=== PATIENT | female | born 1990 | race Caucasian/White ===

== ENCOUNTER 2020-08-19 02:10 | Emergency (ER) | payer SELFPAY | END 2020-08-19 02:58 | disposition home or self-care (01) | LOC: CSHERS 02:10 | DX: H81.399 Other peripheral vertigo, unspecified ear (principal) | CPT/HCPCS: 71045; 93005 ==

== ENCOUNTER 2021-03-27 05:13 | Emergency (ER) | payer SELFPAY ==
[2021-03-27] MEDS ORDERED: Dexamethasone 10 MG/ML VIAL ONE (05:49)
[2021-03-27] MEDS ORDERED: Lidocaine 1% MPF 2 ML VIAL ONE (05:50)
[2021-03-27] MEDS ORDERED: cefTRIAXone\\ROCEPHIN 1 GM VIAL ONE (05:50)
[2021-03-27] MEDS ORDERED: Ketorolac Tromethamine 30 MG/ML VIAL ONE (05:50)
== END 2021-03-27 06:03 | disposition home or self-care (01) ==
LOC: CSHERS 05:13
DX: J36 Peritonsillar abscess (principal)
CPT/HCPCS: 96372; 99282; J0696; J1100; J1885

== ENCOUNTER 2021-04-10 16:58 | Emergency (ER) | payer SELFPAY ==
[2021-04-10] MEDS ORDERED: Dexamethasone 4 MG TAB ONE (20:13)
== END 2021-04-10 20:20 | disposition home or self-care (01) ==
LOC: CSHERS 16:58
DX: J02.9 Acute pharyngitis, unspecified (principal)
CPT/HCPCS: 87081; 87430; 99284; J8540

== ENCOUNTER 2022-07-21 00:13 | Emergency (ER) | payer OTHER ==
[2022-07-21] MEDS ORDERED: Ondansetron PF 4 MG/2 ML Vial ONE (00:27)
[2022-07-21] MEDS ORDERED: Ketorolac Tromethamine 30 MG/ML VIAL ONE (00:38)
[2022-07-21 00:47] LABS: #Monocytes 0.3 10x3/uL (0.0-1.1); #Neutrophils 8.2 10x3/uL (1.5-8.4); %Basophils 0.3 % (0.0-2.0); %Lymphocytes 2.2 % (18.0-47.0); %Monocytes 3.4 % (0.0-10.0); %Neutrophils 93.9 % (40.0-75.0); Hemoglobin 14.9 g/dL (12.0-15.5); Mean Corpuscular HGB CONC 35.4 g/dL (32.0-36.0); Mean Corpuscular Volume 90.3 fl (81.6-98.3); Mean Platelet Volume 11.8 fl (7.4-10.4); Platelet Count 165 10x3/uL (150-450); RBC Distribution Width 11.6 % (11.5-14.5); Red Blood Cell (RBC) Count 4.66 10x6/uL (3.90-5.03); White Blood Cell (WBC) Count 8.8 10x3/uL (3.5-10.5)
[2022-07-21 01:01] LABS: BHCG - Serum Negative (NEGATIVE); Pregs Control Background? CLEAR/WHITE (CLR/WHITE); Pregs Control Bar Appear? YES (CONTROL BAR)
[2022-07-21 01:07] LABS: ALT (SGPT) 8 U/L (8-55); AST (SGOT) 13 U/L (5-34); Albumin 4.5 g/dL (3.5-5.0); Alkaline Phosphatase 47 U/L (40-110); Anion Gap 16 mmol/L (10-20); BUN (Urea Nitrogen) 15 mg/dL (7.0-18.7); Bilirubin, Total 1.8 mg/dL (0.2-1.2); Calc. Creatinine Clearance 0 mL/min (70-130); Calcium 9.1 mg/dL (7.8-10.44); Carbon Dioxide 20 mmol/L (22-29); Chloride 108 mmol/L (98-107); Estimated GFR 102; Globulin 2.8 g/dL (2.4-3.5); Glucose 140 mg/dL (70-105); Lipase 12 U/L (8-78); Magnesium 1.7 mg/dL (1.6-2.6); Protein, Total 7.3 g/dL (6.0-8.3); Sodium 140 mmol/L (136-145)
[2022-07-21 01:28] LABS: Bilirubin Neg (Negative); Blood, Urine 25 (Negative); Clarity Clear (Clear); Glucose, Urine (Dipstick) Normal (Negative); Ketone, Urine 50 mg/dL (Negative); Leukocyte 25 (Negative); Nitrite Negative (Negative); Protein, Urine (Dipstick) 15 mg/dl (Neg-Trace); Urobilinogen Normal mg/dL (Less than 2)
[2022-07-21 01:49] LABS: Bacteria/HPF None Seen HPF (None Seen); RBC/HPF 0-3 HPF (0-3); Squamous Epithelial 0-3 HPF (0-3); WBC/HPF 0-3 HPF (0-3)
[2022-07-21] MEDS ORDERED: Iopamidol 300 61% 100 ML VIAL FS ONE (08:58)
== END 2022-07-21 02:10 | disposition home or self-care (01) ==
LOC: CSHERS 00:13
DX: K52.9 Noninfective gastroenteritis and colitis, unspecified (principal); R11.2 Nausea with vomiting, unspecified
CPT/HCPCS: 36416; 74177; 80053; 81003; 81015; 83690; 83735; 84703; 85025; 93005; 96361; 96374; 96375; J1885; J2405; Q9967